=== PATIENT | male | born 1950 | race African-American/Black ===

== ENCOUNTER → 2020-09-15 | Outpatient (CLI) | payer MEDICARE, OTHER ==
--- NOTE | 2020-09-15 11:49 | RAD ---
EXAM: XR CHEST 2V 09/15/2020 11:32 AM CLINICAL INDICATION:Nonischemic cardiomyopathy COMPARISON:None TECHNIQUE:PA and lateral views of the chest FINDINGS:There is a right chest wall port with tip over the superior cavoatrial junction. Left-sided pacemaker/AICD. Mild cardiomegaly. There are perihilar opacities, greatest in the right upper lobe an d left midlung. Small suspected small left pleural effusion on PA view, although not appreciated on l ateral view. There is fluid in the minor fissure. No acute osseous abnormality. IMPRESSION: 1. Cardiomegaly. 2. Bilateral perihilar opacities, which can be seen with multifocal infection or pulmonary edema. Loli pected small pleural effusion on PA view, although not appreciated on lateral view. Trace fluid along the minor fissure. Electronically signed by: Dayanna Jaime MD (09/15/2020 11:47 AM) [id number]
[2020-09-15 13:02] LABS: BASO % 0 % (0-3); EOS % 0 % (0-3); HEMATOCRIT 36.6 % (39.0-53.0); LYMPH % 15 % (24-48); MEAN CORPUSCULAR HEMOGLOBIN 33 pg (25-35); MEAN CORPUSCULAR HGB CONC 33 g/dL (31-37); MEAN CORPUSCULAR VOLUME 101 fL (79-100); MONO # 0.9 x10^3/uL (0.0-1.1); MONO % 15 % (0-9); NEUT # 4.3 x10^3uL (1.8-7.7); NEUT % 69 % (31-73); PLATELET COUNT 182 x10^3/uL (140-400); RED BLOOD COUNT 3.61 x10^6/uL (4.30-5.70); WHITE BLOOD COUNT 6.2 x10^3/uL (4.0-11.0)
[2020-09-15 13:22] LABS: CALCIUM 8.5 mg/dL (8.5-10.1); CREATININE 1.5 mg/dL (0.7-1.3); GFR 56.3; POTASSIUM 3.3 mmol/L (3.5-5.1)
== END ==
LOC: DXRAD 11:26
PROVIDERS: ATTEND Internal Medicine
DX: R91.8 Other nonspecific abnormal finding of lung field (principal); I51.7 Cardiomegaly; I42.8 Other cardiomyopathies
CPT/HCPCS: 36415; 71046; 80048; 83880; 85025

== ENCOUNTER 2021-04-24 20:19 | Observation (INO) | payer MEDICARE, OTHER ==
[~2021-04-24] VITALS: Ht 198.1 cm; Wt 71.0 kg
--- NOTE | 2021-04-24 20:40 | PHYS DOC ---
Past History Past Medical History: Cancer Past Medical History Multiple myeloma General Adult EDM: Chief Complaint: SEIZURE HPI: HPI: ".. He acted like he was having a seizure... He doing it now..see how . he is shaking.." Patient is a 70 year old male who presents with hx of seizure seizure-like activity however appears to be rigors or chills. Patient does have a significa nt medical history of multiple myeloma. Pt. gets all his chemo tx. at and follows as primary care site. Today he is also site for his cardiac care. Patient has been getting serial treatments with chemo at . However chemotherapy was stopped due to cardiac dysfunction and CHF. Patient presents today with shaking activity which does not appear to be seizure but more ch ills/rigors. Patient also appears to be having significant increased dyspnea due to CHF/diastolic dysfunction. Cardiac dysfunction felt to be due in part from his multiple myeloma and chemotherapy. Patient is on Eliquis 5 mg twice a day for episodes of A. fib.. And has been compliant with this medication. No recent travel. No specific ill contacts. Did have a Covid vaccination with Moderna 1 month ago. Is due for second shot. Patient has not been on any antibiotics recently. Review of Systems: Review of Systems: Constitutional: History of chills Eyes: Denies change in visual acuity HENT: Denies nasal congestion or sore throat Respiratory: History of cough and shortness of breath Cardiovascular: Denies chest pain or edema GI: History of nausea,. Denies vomiting, bloody stools or diarrhea : Denies dysuria Musculoskeletal: History of generalized myalgia and arthralgia Integument: Denies rash Neurologic: Denies headache, focal weakness or sensory changes Endocrine: Denies polyuria or polydipsia Lymphatic: Denies swollen glands Psychiatric: Denies depression or anxiety Family History: Family History: Noncontributory to presentation Current Medications: Current Meds: See nursing for home meds Allergies: Allergies: Allergic to tramadol Physical Exam: PE: Constitutional: In acute distress, cachectic and chronically ill in appearance HENT: Normocephalic, atraumatic, bilateral external ears normal, oropharynx moist, no oral exudates, nose normal. [] Eyes: PERRLA, EOMI, conjunctiva normal, no discharge. [] Neck: Normal range of motion, no tenderness, supple, no stridor. [] Cardiovascular:Heart rate regular rhythm, no murmur, PMI to the left Lungs & Thorax: Bilateral breath sounds equal apex with scattered crackles throughout on auscultation [] port on right chest wall Abdomen: Bowel sounds decreased, soft, no tenderness, no masses, no pulsatile masses. [] Skin: Warm, dry, no erythema, no rash. Poor turgor Back: No tenderness, no CVA tenderness. [] Extremities: No cording appreciated, no cyanosis, no clubbing, moves extremities on request, ankle edema. Generalized arthralgia Neurologic: Alert and oriented X 3, moves extremities on request,, decreased plantar sensory,, no focal deficits noted. [] Psychologic: Affect flat, judgement normal, mood depressed EKG: EKG: My interpretation of EKG #1 shows a sinus rhythm with a right axis deviation and bundle branch block. Does appear to have overall abnormal biology and repolarization. Abnormal EKG time EKG 2042 hrs. My interpretation EKG #2 shows a sinus rhythm with generalized repolarization abnormality with a right axis deviation and a bundle branch block [] overall morphology same as prior EKG time of this EKG is 0128 hrs. Radiology/Procedures: Radiology/Procedures: [][place] [address] IMAGING REPORT Signed PATIENT: AIDAN CHOI ACCOUNT: [id number] : 1950 LOCATION: ER AGE: 70 SEX: M EXAM STATUS: REG ER ORD. PHYSICIAN: GUTIERREZ DUENAS MD REASON: dyspnea PROCEDURE: PORTABLE CHEST 1V AP chest. HISTORY: Dyspnea AP view was taken of the chest. The heart is enlarged. Left pacemaker is unchanged. Right Port-A-Cath is unchanged. There is hazy infiltrates or edema in the lung bases. There are small effusions. Mild heart failure is possible. There is lucency of humerus bilaterally unchanged from an old x-ray. IMPRESSION: 1. Cardiomegaly. 2. Small pleural effusions. 3. Hazy interstitial infiltrates or edema in the lung bases. Electronically signed by: Terry Pearson MD (04/24/2021 9:19 PM) [facility] DICTATED AND SIGNED BY: TERRY PEARSON MD DATE: 04/24/212114 CC: GUTIERREZ DUENAS MD; JEANNE MORELAND MD ~MTH0 [address] [address] IMAGING REPORT Signed PATIENT: AIDAN CHOI ACCOUNT: [id number] : 1950 LOCATION: ER AGE: 70 SEX: M EXAM STATUS: REG ER ORD. PHYSICIAN: GUTIERREZ DUENAS MD REASON: seizure PROCEDURE: CT HEAD WO CONTRAST Exam: CT head INDICATION: Seizure TECHNIQUE: Sequential axial images through the head were obtained without the administration of IV contrast. Exposure: One or more of the following in the visualized dose reduction techniques were utilized for this examination: 1. Automated exposure control 2. Adjustment of the MA and/or KV according to patient size 3. Use of iterative of reconstructive technique Comparisons: None FINDINGS: No focal parenchymal lesion or hemorrhage is identified. There is no midline shift or sulcal effacement. No acute vascular territory infarction is identified. Parry-white distinction is preserved. The ventricular system is within normal limits without compression hydrocephalus. The basal cisterns are well maintained. Near complete opacification of the right maxillary sinus. No acute fractures. IMPRESSION: No acute intracranial abnormality. Sinus disease as described above. Electronically signed by: Daryn Murrell MD (04/24/2021 9:36 PM) [facility] DICTATED AND SIGNED BY: DARYN MURRELL MD DATE: 04/24/212133 CC: GUTIERREZ DUENAS MD; JEANNE MORELAND MD ~MTH0 0 Heart Score: C/O Chest Pain: No HEART Score for Chest Pain: HEART Score for Chest Pain Response (Comments) Value History Highly Suspicious 2 ECG Nonspecific Repolarizatio 1 Age > 65 2 Risk Factors >3 Risk Factors or Hx CAD 2 Troponin >1-<3x Normal Limit 1 Total 8 Risk Factors: Risk Factors: DM, Current or recent (<one month) smoker, HTN, HLP, family history of CAD, obesity. Risk Scores: Score 0 - 3: 2.5% MACE over next 6 weeks - Discharge Home Score 4 - 6: 20.3% MACE over next 6 weeks - Admit for Clinical Observation Score 7 - 10: 72.7% MACE over next 6 weeks - Early Invasive Strategies Course & Med Decision Making: Course & Med Decision Making Pertinent Labs and Imaging studies reviewed. (See chart for details) Discussed presentation, testing and treatment plan-and request by patient and to transfer to with [facility] transfer. Currently patient's transfer refused by [facility] transfer because of hospitals saturation and no beds currently available for this patient, Discussed presentation testing and treatment plan with , will accept patient admission here. Cardiac consult also ordered. Will continue gentle diuresis. Will start antibiotic coverage for possible infectious complications of his underlying illness immunosuppression. Possible consideration for transfer later if beds become available. Discussed placement with and currently declining transfer to [facility], will accept admission here. Poor prognosis. Do not feel that patient is shaking is a seizure but more of a rigors or chills. Critical Care 90 min. Impression: 1. Chills/rigors 2. Marked CH F and diastolic dysfunction 3. History of multiple myeloma 4. Renal insufficiency BUN 40 creatinine 2.2 5. Diabetes glucose 181 6. Anemia hemoglobin 11.4 7. Right maxillary sinusitis [] Dragciro Disclaimer: Reymundo Disclaimer: This electronic medical record was generated, in whole or in part, using a voice recognition dictation system. Departure Departure: Referrals: JEANNE MORELAND MD (PCP) Reymundo Disclaimer This chart was dictated in whole or in part using Voice Recognition software in a busy, high-work load, and often noisy Emergency Department environment. It may contain unintended and wholly unrecognized errors or omissions. GUTIERREZ DUENAS MD Apr 24, 2021 20:40
--- NOTE | 2021-04-24 21:21 | RAD ---
AP chest. HISTORY: Dyspnea AP view was taken of the chest. The heart is enlarged. Left pacemaker is unchanged. Right Port-A-Cath is unchanged. There is hazy infiltrates or edema in the lung bases. There are small effusions. Mild heart failure is possible. There is lucency of humerus bilaterally unchanged from an old x-ray. IMPRESSION: 1. Cardiomegaly. 2. Small pleural effusions. 3. Hazy interstitial infiltrates or edema in the lung bases. Electronically signed by: Terry Pearson MD (04/24/2021 9:19 PM) [facility]
--- NOTE | 2021-04-24 21:23 | EKG ---
[address] [address] Test Date: 2021-04-24 Test Time: 20:42:09 Pat Name: AIDAN CHOI Department: Room: Gender: M Napper Runner: TOBY : 1950 Requested By: GUTIERREZ DUENAS Order Number: [id number] Reading MD: Measurements Intervals [place] Rate: 80 P: 0 [place]: 84 QRS: 242 QRSD: 168 T: 26 QT: 424 QTc: 493 Interpretive Statements SINUS RHYTHM LEFT ATRIAL ABNORMALITY ABNORMAL RIGHT SUPERIOR AXIS DEVIATION LOW LIMB LEAD VOLTAGE NON SPECIFIC INTRAVENTRICULAR BLOCK RVH WITH REPOLARIZATION ABNORMALITY QRS(T) CONTOUR ABNORMALITY CONSISTENT WITH ANTERIOR INFARCT AGE UNDETERMINED CONSISTENT WITH INFERIOR INFARCT PROBABLY OLD
[2021-04-24 21:28] LABS: BASO % 1 % (0-3); EOS % 1 % (0-3); HEMATOCRIT 35.4 % (39.0-53.0); HEMOGLOBIN 11.4 g/dL (13.0-17.5); LYMPH # 1.1 x10^3/uL (1.0-4.8); LYMPH % 18 % (24-48); MEAN CORPUSCULAR HEMOGLOBIN 34 pg (25-35); MEAN CORPUSCULAR HGB CONC 32 g/dL (31-37); MEAN CORPUSCULAR VOLUME 105 fL (79-100); MONO # 0.6 x10^3/uL (0.0-1.1); MONO % 11 % (0-9); NEUT # 4.1 x10^3uL (1.8-7.7); NEUT % 70 % (31-73); PLATELET COUNT 208 x10^3/uL (140-400); RED BLOOD COUNT 3.37 x10^6/uL (4.30-5.70); RED CELL DISTRIBUTION WIDTH 19.3 % (11.5-14.5); WHITE BLOOD COUNT 5.9 x10^3/uL (4.0-11.0)
[2021-04-24 21:29] LABS: CALCIUM 8.3 mg/dL (8.5-10.1); CREATININE 2.2 mg/dL (0.7-1.3); GFR 36.2; POTASSIUM 3.8 mmol/L (3.5-5.1)
--- NOTE | 2021-04-24 21:39 | RAD ---
Exam: CT head INDICATION: Seizure TECHNIQUE: Sequential axial images through the head were obtained without the administration of IV co ntrast. Exposure: One or more of the following in the visualized dose reduction techniques were utilized for this examination: 1. Automated exposure control 2. Adjustment of the MA and/or KV according to patient size 3. Use of iterative of reconstructive technique Comparisons: None FINDINGS: No focal parenchymal lesion or hemorrhage is identified. There is no midline shift or sulcal effaceme nt. No acute vascular territory infarction is identified. Parry-white distinction is preserved. The ventricular system is within normal limits without compression hydrocephalus. The basal cisterns are well maintained. Near complete opacification of the right maxillary sinus. No acute fractures. IMPRESSION: No acute intracranial abnormality. Sinus disease as described above. Electronically signed by: Daryn Pisano MD (04/24/2021 9:36 PM) [facility]
[2021-04-24 21:43] LABS: ALBUMIN 3.7 g/dL (3.4-5.0); DIRECT BILIRUBIN 1.1 mg/dL (0.0-0.2); MAGNESIUM 2.6 mg/dL (1.8-2.4); TOTAL BILIRUBIN 2.3 mg/dL (0.2-1.0); TOTAL PROTEIN 6.6 g/dL (6.4-8.2)
[2021-04-25] MEDS ORDERED: FUROSEMIDE 40 MG/4 ML VIAL IVP ONE (01:30)
[2021-04-25] MEDS ORDERED: VANCOMYCIN 1 GM in IV NORMAL SALINE 250ML 250 ML IV ONE (01:30)
[2021-04-25 01:37] LABS: BARBITURATES NEG (NEG); BENZODIAZEPINES NEG (NEG); CANNABINOIDS POS (NEG); COCAINE NEG (NEG); METHADONE NEG (NEG); OPIATES NEG (NEG); PHENCYCLIDINE NEG (NEG)
[2021-04-25 01:38] LABS: BACTERIA,URINE 0 /HPF (0-FEW); BILIRUBIN,URINE NEG (NEG); CLARITY,URINE CLEAR; COLOR,URINE YELLOW; GLUCOSE,URINE NEG (NEG); NITRITE,URINE NEG (NEG); RBC,URINE 0 /HPF (0-2); WBC,URINE 0 /HPF (0-4)
[2021-04-25 01:39] LABS: SQUAMOUS EPITHELIAL CELL,UR OCC /LPF
[2021-04-25] MEDS ORDERED: cefTRIAXone SODIUM 1 GM VIAL ONE (01:39)
[2021-04-25] MEDS ORDERED: IV NORMAL SALINE 50ML 50 ML ONE (01:39)
[2021-04-25 01:41] LABS: AMPHETAMINE/METHAMPHETAMINE NEG (NEG)
[2021-04-25] MEDS ORDERED: ONDANSETRON PF 4 MG/2 ML VIAL. IVP PRN (01:45)
[2021-04-25] MEDS ORDERED: ACETAMINOPHEN 325 MG TABLET PO PRN (01:45)
[2021-04-25] MEDS ORDERED: ANTI-COAG MONITOR BY PHARMACY. MC PRN (02:00)
[2021-04-25] MEDS ORDERED: VANCOMYCIN PER PHARMACY MC PRN (02:00)
[2021-04-25] MEDS: APIXABAN 5 MG TABLET. PO SCH ×2 (02:00→04:50)
[2021-04-25] MEDS ORDERED: VANCOMYCIN 1 GM VIAL. ONE (02:11)
[2021-04-25] MEDS ORDERED: IV NORMAL SALINE 250ML 250 ML ONE (02:11)
--- NOTE | 2021-04-25 03:21 | NUR ---
Pharmacy Vancomycin Dosing Note S:Consulted to monitor and dose vancomycin started 04/25/21. O:AIDAN CHOI is a 70 year old M with Pneumonia, . Height: 5 feet, 6 inches Weight: 71.0 kg [place] Body Weight: 63.80 Adjusted Body Weight: 66.68 Dosing Weight: Actual Other Antibiotics: CEFTRIAXONE 1 GM Q24 LABS: Last BUN: 40 Last Creatinine: 2.2 Creatinine Clearance: 30 Last WBC: 5.9 Last Procalcitonin: Tmax (past 24 hours): Microbiology: I/O: Drug Levels: Last level: on at Last dose given 04/25/21 at 0236 Vancomycin Dosing: Loading Dose: 1000 mg x1 Dosing Weight: Actual Target Trough: 15-20 A: Based on: WT AND CRCL P: 1. Begin Vancomycin 1000 mg IV q24h 2. Follow up Trough level on 04/27/21 at 0130 3. Pharmacy will continue to monitor, follow and adjust therapy as needed. TONY CRAIN RPH, 04/25/21320 Signed: 04/25/21 at 032 by TONY CRAIN RPH PHA
[2021-04-25 03:39] VITALS: BP 91/59
--- NOTE | 2021-04-25 04:25 | NUR ---
NURSING ADMIT NOTE: Rec'd pt in stable condition via gurney from ED; A&Ox3, VSS; admit history taken; home medications packaged and sent to pharmacy as per protocol; light snack given as requested; room orientation given, plan of care discussed, verbalized understanding; dobutamine infusion continues delivery via right chest wall portacath as per home setup, plans to visit at 1100 tomorrow a.m. to manage infusion as per home instructions; voices no needs or concerns at this time; siderails up x3, call bueno in reach.
[2021-04-25 06:30] VITALS: BP 100/71
[2021-04-25] MEDS: IPRATRPIUM/ALBUTEROL 0.5/2.5MG 3 ML NEBU. NEB SCH ×2 (06:31→12:00)
--- NOTE | 2021-04-25 06:31 | NUR ---
PT WAS ON TOILET WHEN I CAME BY. SHORT ON TIME BECAUSE OF THE ER AND SHIFT CHANGE.
[2021-04-25] MEDS ORDERED: MIDO5TAB4 PO (07:38)
[2021-04-25] MEDS ORDERED: BUME2TAB3 PO ×2 (07:38)
[2021-04-25] MEDS ORDERED: AMIO200T6 PO (07:38)
[2021-04-25] MEDS ORDERED: BENZ-8 PO (07:38)
[2021-04-25] MEDS ORDERED: APIX5TAB3 PO (07:38)
[2021-04-25] MEDS ORDERED: DOBUTAMINE (07:39)
--- NOTE | 2021-04-25 07:39 | NUR ---
NURSING NOTE CONSULT CONSULT CALLED TO [facility], HERE MAKING ROUNDS. LIDIA TERESA.
[2021-04-25] MEDS: FUROSEMIDE 40 MG/4 ML VIAL IVP SCH ×2 (08:23→08:32)
--- NOTE | 2021-04-25 08:28 | PDOC2 ---
CARDIAC CONSULT DATE OF CONSULT DOS: DATE: 04/25/21 TIME: 08:06 REASON FOR CONSULT Reason for Consult CHF REFERRING PHYSICIAN Referring Physician Dr. Tabor SOURCE Source: Chart review, Patient HPI History of Present Illness This is a 70 yo male who presented secondary to "seizure like" activity. Had loss of function of bilateral upper and lower extremities. reports jerking- like movements of his extremities. Did not lose consciousness or bowel/bladder function. Patient reports feeling like he was "drugged". Has extensive cardiac history including severe CMP and is maintained on continuous Dobutamine infusion. Follows with HF clinic. Reviewed records extensively. Primary life insurance sales agent recommending palliative care at recent office noted given cardiac amyloidosis, severe cardiomyopathy, and severe MR. Patient has been deemed not a candidate for heart transplant or nikolay clip. Patient has declined Hospice as he would like to continue Dobutamine infusion and live a few more months. Patient reports feeling well this am and would like to be discharged. PAST MEDICAL HISTORY Cardiovascular: AFIB, CHF (NICM), Other (AL amyloidosis, VT, orthostatic hypotension, left atrial appendage thrombus, severe MR) Heme/Onc: Other (Multiple myeloma ) Renal/: Chronic renal insuff PAST SURGICAL HISTORY Past Surgical History: Pacemaker (AICD (Medtronic)), Other (tem cell transplant ) FAMILY HISTORY Family History: Hypertension SOCIAL HISTORY Smoke: No ALCOHOL: none Drugs: None Lives: with Family CURRENT MEDICATIONS Current Medications Current Medications Lorazepam (Ativan Inj) 1 mg 1X ONCE IVP Last administered on 04/24/21at 21:50; Start 04/24/21 at 20:45; Stop 04/24/21 at 21:40; Status DC Furosemide (Lasix) 40 mg 1X ONCE IVP Last administered on 04/25/21at 01:52; Start 04/25/21 at 01:30; Stop 04/25/21 at 01:31; Status DC Vancomycin HCl 1 gm/Sodium Chloride 250 ml @ 250 mls/hr 1X ONCE IV Last administered on 04/25/21at 02:21; Start 04/25/21 at 01:30; Stop 04/25/21 at 02:29; Status DC Ceftriaxone Sodium 1 gm/ Sodium Chloride 50 ml @ 100 mls/hr 1X ONCE IV Last administered on 04/25/21at 01:51; Start 04/25/21 at 02:00; Stop 04/25/21 at 02:29; Status DC Ondansetron HCl (Zofran) 4 mg PRN Q4HRS PRN IVP NAUSEA/VOMITING; Start 04/25/21 at 01:45; Stop 04/26/21 at 01:44 Acetaminophen (Tylenol) 650 mg PRN Q4HRS PRN PO FEVER > 100.3'F; Start 04/25/21 at 01:45; Stop 04/26/21 at 01:44 Albuterol/ Ipratropium (Duoneb) 3 ml RTQID NEB ; Start 04/25/21 at 08:00; Stop 04/26/21 at 07:59 Furosemide (Lasix) 40 mg BID92 IVP ; Start 04/25/21 at 09:00 Apixaban (Eliquis) 5 mg BID PO Last administered on 04/25/21at 04:50; Start 04/25/21 at 02:00 Vancomycin HCl 1 gm/Sodium Chloride 250 ml @ 250 mls/hr Q24H IV ; Start 04/26/21 at 02:00 Ceftriaxone Sodium 1 gm/ Sodium Chloride 50 ml @ 100 mls/hr QHS IV ; Start 04/25/21 at 21:00 Sodium Chloride 50 ml @ As Directed STK-MED ONCE .ROUTE ; Start 04/25/21 at 01:39; Stop 04/25/21 at 01:39; Status DC Ceftriaxone Sodium (Rocephin) 1 gm STK-MED ONCE .ROUTE ; Start 04/25/21 at 01:39; Stop 04/25/21 at 01:40; Status DC Info (Anti-Coagulation Monitoring By Pharmacy) 1 each PRN DAILY PRN MC PER PROTOCOL; Start 04/25/21 at 02:00 Vancomycin HCl (Vanco Per Pharmacy) 1 each PRN DAILY PRN MC SEE COMMENTS Last administered on 04/25/21at 03:21; Start 04/25/21 at 02:00 Sodium Chloride 250 ml @ As Directed STK-MED ONCE .ROUTE ; Start 04/25/21 at 02:11; Stop 04/25/21 at 02:11; Status DC Vancomycin HCl (Vancomycin) 1 gm STK-MED ONCE .ROUTE ; Start 04/25/21 at 02:11; Stop 04/25/21 at 02:11; Status DC Vancomycin HCl (Vancomycin Trough Level) 1 each 1X ONCE MC ; Start 04/27/21 at 01:30; Stop 04/27/21 at 01:31 Active Scripts Active Reported [dobutamine gtt] patient has a dobutamine gtt running managed by patient Amiodarone Hcl 200 Mg Tablet 1 Tab PO BID Bumetanide 2 Mg Tablet 1 Tab PO DAILY16 bumetanide 2 mg take 2 tablets by mouth every morning then take 1 tablet 6 hours later Bumetanide 2 Mg Tablet 2 Tab PO DAILY Benzonatate 100 Mg Capsule 1 Cap PO TID Midodrine Hcl 5 Mg Tablet 5 Mg PO TID Eliquis (Apixaban) 5 Mg Tablet 5 Mg PO BID ALLERGIES Allergies: Coded Allergies: tramadol (Verified Allergy, Unknown, 04/24/21) ROS Review of Systems 14 point ROS conducted with pertinent positives noted above in hPI PHYSICAL EXAM General: Alert, Oriented X3, Cooperative HEENT: Atraumatic Lungs: Other (fine bibasilar crackles ) Heart: Regular rate Abdomen: Soft Extremities: Other (1-2+ bilateral LE edema ) Skin: No rashes, No breakdown Neuro: Normal speech, Sensation intact Psych/Mental Status: Mental status NL, Mood NL MUSCULOSKELETAL: Osteoarthritic changes both hands VITALS Vital Signs Vital Signs Date Time Temp Pulse Resp B/P (MAP) Pulse Ox O2 Delivery O2 Flow Rate FiO2 04/25/21 06:30 97.7 85 16 100/71 (81) 96 Room Air LABS LABS Laboratory Tests Test 04/24/21 20:35 04/24/21 22:40 04/25/21 01:05 04/25/21 06:45 White Blood Count 5.9 x10^3/uL (4.0-11.0) Red Blood Count 3.37 x10^6/uL (4.30-5.70) Hemoglobin 11.4 g/dL (13.0-17.5) Hematocrit 35.4 % (39.0-53.0) Mean Corpuscular Volume 105 fL (79-100) Mean Corpuscular Hemoglobin 34 pg (25-35) Mean Corpuscular Hemoglobin Concent 32 g/dL (31-37) Red Cell Distribution Width 19.3 % (11.5-14.5) Platelet Count 208 x10^3/uL (140-400) Neutrophils (%) (Auto) 70 % (31-73) Lymphocytes (%) (Auto) 18 % (24-48) Monocytes (%) (Auto) 11 % (0-9) Eosinophils (%) (Auto) 1 % (0-3) Basophils (%) (Auto) 1 % (0-3) Neutrophils # (Auto) 4.1 x10^3uL (1.8-7.7) Lymphocytes # (Auto) 1.1 x10^3/uL (1.0-4.8) Monocytes # (Auto) 0.6 x10^3/uL (0.0-1.1) Eosinophils # (Auto) 0.0 x10^3/uL (0.0-0.7) Basophils # (Auto) 0.0 x10^3/uL (0.0-0.2) Sodium Level 138 mmol/L (136-145) Potassium Level 3.8 mmol/L (3.5-5.1) Chloride Level 98 mmol/L (98-107) Carbon Dioxide Level 25 mmol/L (21-32) Anion Gap 15 (6-14) Blood Urea Nitrogen 40 mg/dL (8-26) Creatinine 2.2 mg/dL (0.7-1.3) Estimated GFR (Cockcroft-Gault) 36.2 Glucose Level 181 mg/dL (70-99) Calcium Level 8.3 mg/dL (8.5-10.1) Magnesium Level 2.6 mg/dL (1.8-2.4) Total Bilirubin 2.3 mg/dL (0.2-1.0) Direct Bilirubin 1.1 mg/dL (0.0-0.2) Aspartate Amino Transf (AST/SGOT) 87 U/L (15-37) Alanine Aminotransferase (ALT/SGPT) 141 U/L (16-63) Alkaline Phosphatase 354 U/L (46-116) Creatine Kinase 220 U/L (39-308) Troponin I Quantitative 0.115 ng/mL (0-0.055) 0.106 ng/mL (0-0.055) 0.113 ng/mL (0-0.055) JD-Tqj-W-Type Natriuretic Peptide 5746 pg/mL (0-124) Total Protein 6.6 g/dL (6.4-8.2) Albumin 3.7 g/dL (3.4-5.0) Lipase 231 U/L (73-393) Urine Collection Type Unknown Urine Color Yellow Urine Clarity Clear Urine pH 6.5 Urine Specific [place] 1.015 Urine Protein Neg (NEG-TRACE) Urine Glucose (UA) Neg mg/dL (NEG) Urine Ketones (Stick) Neg mg/dL (NEG) Urine Blood Neg (NEG) Urine Nitrite Neg (NEG) Urine Bilirubin Neg (NEG) Urine Urobilinogen Dipstick 2.0 mg/dL (0.2 mg/dL) Urine Leukocyte Esterase Neg (NEG) Urine RBC 0 /HPF (0-2) Urine WBC 0 /HPF (0-4) Urine Squamous Epithelial Cells Occ /LPF Urine Bacteria 0 /HPF (0-FEW) Urine Opiates Screen Neg (NEG) Urine Methadone Screen Neg (NEG) Urine Barbiturates Neg (NEG) Urine Phencyclidine Screen Neg (NEG) Urine Amphetamine/Methamphetamine Neg (NEG) Urine Benzodiazepines Screen Neg (NEG) Urine Cocaine Screen Neg (NEG) Urine Cannabinoids Screen Pos (NEG) Urine Ethyl Alcohol Neg (NEG) ECHOCARDIOGRAM Echocardiogram 03/07/21 - LIMITED ECHO Location Performed: [facility] ECHOPV Interpretation Summary Limited 2D and Doppler echocardiogram obtained to evaluate mitral regurgitation. Normal left ventricular size with severe concentric hypertrophy. Severely reduced left ventricular systolic function, LVEF 20%. There is global hypokinesis. There is granularity of the left ventricular myocardium. These findings are consistent with patient's known history of cardiac amyloid. Severe diastolic dysfunction, elevated left atrial pressure. Mild right ventricular dilatation with moderately reduced systolic function. Severe biatrial enlargement. Mild to moderate mitral regurgitation with a centrally directed regurgitant jet. Mild to moderate tricuspid regurgitation. Elevated pulmonary systolic pressure, PASP 46 mmHg. Markedly elevated central venous pressure with plethoric IVC, CVP >15 mmHg. No pericardial effusion. Left pleural effusion present. Comparison is made with mended 2D and Doppler echocardiogram dated 10/19/2020. Left ventricular size, thickness, function similar. Right ventricular size and function is similar. The mitral and tricuspid regurgitation appear similar on current study to previous study. Pulmonary artery systolic pressure is improved on current study to 46 mmHg from 61 mmHg. Central venous pressure continues to be markedly elevated. Left pleural effusion was present on prior study. HEART CATH Heart Cath CARDIAC CATHETERIZATION REPORT DATE: 03/08/2021 RESULTS: Noninvasive blood pressure of 102/70 with mean 82. Heart rate 60. RA pressure 16 with a V-wave of 19. RV pressure 56/19. PA pressure 56/23 with a mean of 36. Pulmonary capillary wedge pressure 20 with a V wave of 30. TPG of 16. DPG of 3. Cardiac output/index by thermodilution of 1.8/1.0. Cardiac output/index by estimated [place] of 2.0/1.2. RA saturation 34%. PA saturation 35%. AO saturation 100%. A-VO2 difference of 9.51. IMPRESSION: Severe reduction of mixed venous oxygenation. Severe reduction in cardiac index. Increased right heart pressures. Increased pulmonary capillary wedge pressure. RECOMMENDATION: Further CICU heart failure management with [place] direction. ASSESSMENT/PLAN Assessment/Plan 1. Mild acute on chronic systolic CHF 2. Severe non-ischemic cardiomyopathy; LVEF 20% per recent echo. maintained on continuous Dobutamine infusion. Palliative care has been recommended. Follow with Dr. Chavira, [facility] 3. Mild troponin elevation; peak 0.1. Most probable type II demand ischemia, which is multifactorial. 4. AICD in situ (Medtronic) 5. Cardiac amyloidosis 6. Multiple myeloma s/p stem cell transplant 7. Severe MR; not a candidate for Mitraclip due to severe CMP, amloidosis per recent cardiac followup note 8. PAFIB; presently SR 9. H/o VT; on Amiodarone 10. JAZMIN on CKD; Cr 1.85 on 04/17/21 11. Orthostatic hypotension; on Midodrine l 12. Left atrial appendage thrombus; on Eliquis 13. Elevated LFTs Recommendations Resume diuretic therapy Amiodarone for rhythm maintenance Eliquis for stroke prophylaxis Continue inotropic support Dobutmaine infusion Prognosis poor; recommend home with Hospice. LJ RONQUILLO APRN Apr 25, 2021 08:28
[2021-04-25] MEDS ORDERED: FUROSEMIDE 20 MG/2 ML VIAL IVP ONE (08:30)
--- NOTE | 2021-04-25 08:52 | NUR ---
NURSING NOTE PER LJ BIRIMNGHAM, PT IS TO GET 1X DOSE OF LASIX 40MG, BLOOD PRESSURE IS AT BASELINE FOR PT WELL CREAT. LJ SPOKE WITH PATIENT ABOUT PROGNOSIS AND CODE STATUS. PT SEEMS TO BE IN DENIAL BUT ALSO UNDERSTANDS HE DOES NOT HAVE MUCH LONGER TO LIVE. PT STATED HE WANTS TO STAY HOME FOR THE TIME HE HAS LEFT BUT STATES HE IS NOT READY TO GIVE UP AND BE PLACED ON HOSPICE. PT UNDERSTANDS THE TRAUMA OF BEING A FULL CODE, STATES HE ALSO IS NOT READY TO BE A DNR AT THIS TIME. PT ENCOURAGED TO SPEAK WITH HIS . PER CARDIOLOGY NOTES, PT IS NOT A CANDIDATE FOR AGGRESSIVE TREATMENT D/T END STAGE HEART FAILURE. CASE MANAGEMENT NOTIFIED OF SITUATION. PT CURRENTLY A&O RESTING IN THE BED COMFORTABLY, PT DENIES PAIN AT THIS TIME. PT STATES HE THINKS HE TOOK TO MANY OF HIS MEDICATIONS AT THE SAME TIME YESTERDAY AND THAT IS WHAT CAUSED HIM TO FEEL "OUT OF IT". PT HAS DOBUTAMINE DRIP RUNNING THAT IS MANAGED BY HIS ACCORDING TO CARDIOLOGY NOTES WAS A LAST RESORT FOR END STAGE HEART FAILURE FOR COMFORT AND SYMPTOM CONTROL. WILL CONTINUE TO MONITOR. LIDIA TERESA.
[2021-04-25 11:16] VITALS: BP 101/69
--- NOTE | 2021-04-25 14:28 | NUR ---
Patient does not want to take breathing treatments now or in the future. He says breathing is fine, his problems are cardiac in nature. RN informed.
--- NOTE | 2021-04-25 15:34 | SSS ---
ADMIT DATE: 04/25/2021 HISTORY OF PRESENT ILLNESS: The patient is a 70-year-old -Citizen Of [place] male patient with multitude of medical problems who presented to the Emergency Room with seizure-like activity, had loss of function of bilateral upper and lower extremities. reported jerk-like movement of his extremities; however, he did not lose consciousness, he did not have any bowel or bladder incontinence, did not bite his tongue. The patient reports he feels like he was dragged, has extensive cardiac history with severe cardiomyopathy and is maintained on continuous dobutamine infusion. He follows at [facility]. When he was seen by the Cardiology team as well when I saw him myself, he was feeling fine and denied any complaint and his lab work shows that he has chronic kidney failure, likely due to multiple myeloma. He has also normochromic normocytic anemia with normal white cell count and platelets. His urinalysis and toxic screen were unremarkable and his coronavirus by PCR was negative. He was evaluated by the Cardiology team and we have also records from his [facility] where his bark peeler made it clear to him that there is nothing further they can do for him and there is no point in admitting him there as he has remained hemodynamically stable, afebrile, a decision was made to discharge him home. 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 He is known to have multiple myeloma and chronic renal insufficiency. PAST SURGICAL HISTORY: Significant for AICD [employer] and stem cell transplant. ALLERGIES: HE IS ALLERGIC TO TRAMADOL. MEDICATIONS: He is currently on the following home medication: He is on midodrine 5 mg 3 times a day, apixaban 5 mg twice a day, amiodarone 200 mg twice a day, bumetanide 2 mg daily, benzonatate 100 mg 3 times a day and dobutamine infusion. FAMILY HISTORY: Noncontributory. SOCIAL HISTORY: He is , lives with his . He does not smoke, drink alcohol or do recreational drugs. PHYSICAL EXAMINATION: GENERAL: When I saw him this afternoon, he looked well and was clearly in no apparent respiratory distress, pale, but no jaundice, cyanosis or thyromegaly. No jugular venous distention. No limb edema. VITAL SIGNS: His heart rate was 80, blood pressure is 101/69, temperature 97.4, respiratory rate was 16 and oxygen saturation was 98%. HEAD, EYES, EARS, NOSE, AND THROAT: Normocephalic, atraumatic. NECK: Supple. HEART: Showed normal first and second heart sounds. No gallop, rub or murmur. CHEST: Clear to auscultation. No crepitation or rhonchi. ABDOMEN: Distended, soft, nontender. NEUROLOGIC: He was grossly intact. ASSESSMENT AND PLAN: The patient was discharged home to continue on his current medication including amiodarone 200 mg twice a day, apixaban 5 mg p.o. b.i.d., benzonatate 100 mg 3 times a day, bumetanide 2 mg p.o. daily and midodrine 5 mg 3 times a day. FINAL DISCHARGE DIAGNOSES: Acute on chronic systolic congestive heart failure, severe nonischemic cardiomyopathy, left ventricular ejection fraction 20%, currently maintained on continuous dobutamine infusion, AICD, cardiac amyloidosis, multiple myeloma, severe mitral regurgitation, paroxysmal atrial fibrillation, history of ventricular tachycardia on amiodarone, acute on chronic kidney injury, orthostatic hypotension, elevated atrial appendage thrombus on Eliquis. MARCI DR: Rob TID: [id number]
--- NOTE | 2021-04-25 17:00 | NUR ---
NURSING NOTE DISCHARGE PT DISCHARGED HOME VIA WHEELCHAIR PICKED UP BY . PT GIVEN WRITTEN AND VERBAL DISCHARGE INSTRUCTIONS. PT TO FOLLOW UP WITH PCP AND CARDIOLOGY. NO COMPLICATIONS. LIDIA TERESA.
--- NOTE | 2021-04-25 19:29 | EKG ---
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
[2021-04-26] MEDS ORDERED: VANCOMYCIN 1 GM in IV NORMAL SALINE 250ML 250 ML IV SCH (02:00)
== END 2021-04-25 17:01 | disposition home or self-care (01) ==
LOC: ER 20:19 → 1 SOUTH 04-25 01:45 → INTOOBSV 04-25 01:45
PROVIDERS: ADMIT Internal Medicine; ATTEND Internal Medicine
DX: I50.23 Acute on chronic systolic (congestive) heart failure (principal); I42.8 Other cardiomyopathies; E11.22 Type 2 diabetes mellitus with diabetic chronic kidney disease; N18.9 Chronic kidney disease, unspecified; Z20.822 Contact with and (suspected) exposure to COVID-19; C90.00 Multiple myeloma not having achieved remission; E85.4 Organ-limited amyloidosis; I48.0 Paroxysmal atrial fibrillation; I43 Cardiomyopathy in diseases classified elsewhere; I51.3 Intracardiac thrombosis, not elsewhere classified; I95.1 Orthostatic hypotension; J32.0 Chronic maxillary sinusitis; R56.9 Unspecified convulsions; D64.9 Anemia, unspecified; Z79.899 Other long term (current) drug therapy; Z86.79 Personal history of other diseases of the circulatory system; Z95.810 Presence of automatic (implantable) cardiac defibrillator; Z79.01 Long term (current) use of anticoagulants
CPT/HCPCS: 36415; 70450; 71045; 80048; 80076; 80307; 81001; 82550; 83690; 83735; 83880; 84443; 84484; 85025; 87040; 93005; 96365; 96366; 96368; 96375; 96376; 99291; 99292; G0378; J0696; J1940; J2060; J3370; J7050; U0003; G0379